=== PATIENT | female | born 1945 | race Asian ===

== ENCOUNTER 2017-02-16 09:16 | Outpatient (CLI) | payer OTHER | END 2017-02-16 21:01 | disposition home or self-care (01) | LOC: RAD 09:16 | DX: Z12.39 Encounter for other screening for malignant neoplasm of breast (principal); Z13.820 Encounter for screening for osteoporosis; Z12.31 Encounter for screening mammogram for malignant neoplasm of breast; Z78.0 Asymptomatic menopausal state | CPT/HCPCS: G0202-TC ==

== ENCOUNTER 2017-09-21 08:25 | Outpatient (CLI) | payer OTHER | END 2017-09-21 09:30 | disposition home or self-care (01) | LOC: RAD 08:25 | DX: J34.89 Other specified disorders of nose and nasal sinuses (principal) ==

== ENCOUNTER 2017-10-16 08:11 | Outpatient (CLI) | payer OTHER | END 2017-10-16 19:03 | disposition home or self-care (01) | LOC: CT 08:11 | DX: R93.8 Abnormal findings on diagnostic imaging of other specified body structures (principal) ==

== ENCOUNTER → 2017-11-28 11:51 | Outpatient (CLI) | payer OTHER | END | disposition home or self-care (01) | LOC: AMB 11:51 | DX: Z04.1 Encounter for examination and observation following transport accident (principal) ==

== ENCOUNTER 2017-11-28 12:24 | Emergency (ER) | payer OTHER ==
[~2017-11-28] VITALS: Ht 160 cm; Wt 102.5 kg
[2017-11-28 12:30] VITALS: TEMP 98.1
[2017-11-28 14:24] VITALS: BP 132/82
== END 2017-11-28 14:25 | disposition home or self-care (01) ==
LOC: ED 12:24
DX: M25.522 Pain in left elbow (principal); M25.562 Pain in left knee; S50.02XA Contusion of left elbow, initial encounter; S80.02XA Contusion of left knee, initial encounter; V43.52XA Car driver injured in collision with other type car in traffic accident, initial encounter; Y92.89 Other specified places as the place of occurrence of the external cause
CPT/HCPCS: 99283

== ENCOUNTER 2018-04-26 12:34 | Outpatient (CLI) | payer OTHER ==
[2018-04-26 13:02] LABS: PLATELET COUNT 280 K/uL (152-353)
== END 2018-04-26 20:09 | disposition home or self-care (01) ==
LOC: LABW 12:34
PROVIDERS: Psychiatry & Neurology Neurology
DX: G60.8 Other hereditary and idiopathic neuropathies (principal); R73.09 Other abnormal glucose; R94.6 Abnormal results of thyroid function studies; R79.89 Other specified abnormal findings of blood chemistry
CPT/HCPCS: 36415; 82607; 82728; 82746; 82784; 82785; 83036; 83540; 83550; 84165; 84439; 84443; 85027; 85044; 85651; 86039; 86140; 86430

== ENCOUNTER 2018-05-08 10:25 | Outpatient (CLI) | payer OTHER | END 2018-05-08 22:49 | disposition home or self-care (01) | LOC: MAMMO 10:25 | DX: Z12.31 Encounter for screening mammogram for malignant neoplasm of breast (principal); R20.2 Paresthesia of skin ==

== ENCOUNTER 2019-05-29 07:23 | Outpatient (CLI) | payer OTHER ==
[2019-05-29 07:58] LABS: PLATELET COUNT 260 K/uL (152-353)
[2019-05-29 08:16] LABS: POTASSIUM 3.5 mmol/L (3.6-5.2)
== END 2019-05-29 19:15 | disposition home or self-care (01) ==
LOC: LABW 07:23
PROVIDERS: Nurse Practitioner Family
DX: M25.551 Pain in right hip (principal); M54.5 Low back pain; M54.6 Pain in thoracic spine; R30.0 Dysuria
CPT/HCPCS: 36415; 80053; 81000; 85027; 85651; 86038; 86140

== ENCOUNTER 2019-06-11 11:36 | Outpatient (CLI) | payer OTHER | END 2019-06-11 23:27 | disposition home or self-care (01) | LOC: MAMMO 11:36 | DX: Z12.31 Encounter for screening mammogram for malignant neoplasm of breast (principal) ==

== ENCOUNTER 2019-09-18 14:58 | Outpatient (CLI) | payer OTHER | END 2019-09-18 23:33 | disposition home or self-care (01) | LOC: RAD 14:58 | DX: M25.561 Pain in right knee (principal); M25.562 Pain in left knee; N95.8 Other specified menopausal and perimenopausal disorders ==

== ENCOUNTER 2020-01-24 10:59 | Outpatient (CLI) | payer OTHER | END 2020-01-24 19:11 | disposition home or self-care (01) | LOC: RAD 10:59 | DX: M47.894 Other spondylosis, thoracic region (principal); M47.896 Other spondylosis, lumbar region ==

== ENCOUNTER 2020-09-30 22:01 | Emergency (ER) | payer OTHER ==
[~2020-09-30] VITALS: Ht 157.5 cm; Wt 90.7 kg
[2020-09-30 22:41] VITALS: BP 143/71; TEMP 97.7
== END 2020-09-30 22:41 | disposition home or self-care (01) ==
LOC: ED 22:01
DX: J06.9 Acute upper respiratory infection, unspecified (principal); J32.8 Other chronic sinusitis; H92.03 Otalgia, bilateral
CPT/HCPCS: 96372; 99283; J0696; J1100

== ENCOUNTER 2020-10-22 17:11 | Emergency (ER) | payer OTHER ==
[~2020-10-22] VITALS: Ht 157.5 cm; Wt 90.7 kg
[2020-10-22 17:51] VITALS: BP 164/74; TEMP 99
== END 2020-10-22 17:56 | disposition home or self-care (01) ==
LOC: ED 17:11
DX: K21.9 Gastro-esophageal reflux disease without esophagitis (principal); K59.09 Other constipation
CPT/HCPCS: 99282

== ENCOUNTER 2021-01-08 10:58 | Outpatient (CLI) | payer OTHER | END 2021-01-08 21:51 | disposition home or self-care (01) | LOC: CT 10:58 | PROVIDERS: ATTEND Internal Medicine Gastroenterology | DX: R10.31 Right lower quadrant pain (principal); R10.32 Left lower quadrant pain | CPT/HCPCS: 36415; 82565; 84520; Q9963 ==

== ENCOUNTER 2021-03-03 10:15 | Outpatient (CLI) | payer OTHER | END 2021-03-03 20:10 | disposition home or self-care (01) | LOC: INF 10:15 | PROVIDERS: ATTEND Internal Medicine | DX: Z23 Encounter for immunization (principal) | CPT/HCPCS: 96372 ==

== ENCOUNTER 2021-03-25 10:11 | Outpatient (CLI) | payer OTHER | END 2021-03-25 19:25 | disposition home or self-care (01) | LOC: INF 10:11 | PROVIDERS: ATTEND Internal Medicine | DX: Z23 Encounter for immunization (principal) | CPT/HCPCS: 96372 ==

== ENCOUNTER 2021-03-31 10:12 | Outpatient (CLI) | payer OTHER | END 2021-03-31 19:20 | disposition home or self-care (01) | LOC: RAD 10:12 | PROVIDERS: ATTEND Nurse Practitioner Family | DX: M46.1 Sacroiliitis, not elsewhere classified (principal); M47.896 Other spondylosis, lumbar region; M54.5 Low back pain; M85.88 Other specified disorders of bone density and structure, other site ==

== ENCOUNTER 2021-05-26 23:05 | Emergency (ER) | payer OTHER ==
[2021-06-02 15:45] LABS: PLATELET COUNT 262 K/uL (152-353)
[2021-06-02 15:46] LABS: POTASSIUM 3.8 mmol/L (3.6-5.2)
== END 2021-05-27 04:21 | disposition home or self-care (01) ==
LOC: ED 23:05
PROVIDERS: Family Medicine
DX: E11.65 Type 2 diabetes mellitus with hyperglycemia (principal)
CPT/HCPCS: 80053; 82948; 85027; 96372; 99283; J1815

== ENCOUNTER 2021-07-08 10:19 | Outpatient (CLI) | payer OTHER | END 2021-07-08 22:36 | disposition home or self-care (01) | LOC: MRI 10:19 → MAMMO 10:19 | PROVIDERS: ATTEND Specialist | DX: Z12.31 Encounter for screening mammogram for malignant neoplasm of breast (principal) ==

== ENCOUNTER 2021-07-12 15:09 | Outpatient (CLI) | payer OTHER | END 2021-07-12 19:17 | disposition home or self-care (01) | LOC: MRI 15:09 | PROVIDERS: ATTEND Psychiatry & Neurology Neurology | DX: R51.9 Headache, unspecified (principal) | CPT/HCPCS: 36415; 82565; 84520; A9576 ==

== ENCOUNTER 2021-07-27 12:53 | Outpatient (CLI) | payer OTHER | END 2021-07-27 20:53 | disposition home or self-care (01) | LOC: MAMMO 12:53 | PROVIDERS: ATTEND Specialist | DX: R92.8 Other abnormal and inconclusive findings on diagnostic imaging of breast (principal) ==

== ENCOUNTER 2021-09-24 13:55 | Outpatient (CLI) | payer OTHER ==
[2021-09-24 14:16] LABS: PLATELET COUNT 289 K/uL (152-353)
[2021-09-24 14:24] LABS: POTASSIUM 3.5 mmol/L (3.6-5.2)
== END 2021-09-24 21:04 | disposition home or self-care (01) ==
LOC: LABW 13:55
PROVIDERS: ATTEND Internal Medicine Gastroenterology
DX: K76.0 Fatty (change of) liver, not elsewhere classified (principal); K64.0 First degree hemorrhoids
CPT/HCPCS: 36415; 80053; 82272; 85027; 85610

== ENCOUNTER 2022-01-18 10:37 | Outpatient (CLI) | payer OTHER | END 2022-01-18 18:55 | disposition home or self-care (01) | LOC: RAD 10:37 | PROVIDERS: ATTEND Nurse Practitioner Family | DX: M46.1 Sacroiliitis, not elsewhere classified (principal); M47.894 Other spondylosis, thoracic region; M54.59 Other low back pain; M85.89 Other specified disorders of bone density and structure, multiple sites ==

== ENCOUNTER 2022-03-09 11:56 | Emergency (ER) | payer OTHER ==
[~2022-03-09] VITALS: Ht 157.5 cm; Wt 105.2 kg
[2022-03-09 12:12] VITALS: TEMP 97.4
[2022-03-09 12:49] LABS: PLATELET COUNT 255 K/uL (152-353)
[2022-03-09 13:07] LABS: POTASSIUM 3.7 mmol/L (3.6-5.2)
[2022-03-09] MEDS ORDERED: PANTOPRAZOLE 40MG TA PO (14:47)
[2022-03-09] MEDS ORDERED: ONDA4TAB3 PO (14:47)
[2022-03-09 15:05] VITALS: BP 152/63
== END 2022-03-09 15:06 | disposition home or self-care (01) ==
LOC: ED 11:56
PROVIDERS: Hospitalist
DX: K21.9 Gastro-esophageal reflux disease without esophagitis (principal); K29.60 Other gastritis without bleeding
CPT/HCPCS: 80053; 81000; 83690; 85027; 93005; 99283

== ENCOUNTER 2022-06-18 12:29 | Emergency (ER) | payer OTHER ==
[~2022-06-18] VITALS: Ht 157.5 cm; Wt 106.1 kg
[~2022-06-18 12:29] MED LIST: ONDA4TAB3 PO; PANTOPRAZOLE 40MG TA PO
[2022-06-18 13:03] VITALS: BP 174/76; TEMP 98.9
== END 2022-06-18 13:03 | disposition home or self-care (01) ==
LOC: ED 12:29
DX: R22.0 Localized swelling, mass and lump, head (principal); K59.09 Other constipation
CPT/HCPCS: 93005; 99282

== ENCOUNTER 2022-09-05 11:47 | Outpatient (CLI) | payer OTHER | END 2022-09-05 19:04 | disposition home or self-care (01) | LOC: RAD 11:47 | PROVIDERS: ATTEND Nurse Practitioner Family | DX: H16.223 Keratoconjunctivitis sicca, not specified as Sjogren's, bilateral (principal); M06.4 Inflammatory polyarthropathy; M47.894 Other spondylosis, thoracic region; M47.896 Other spondylosis, lumbar region; Z79.899 Other long term (current) drug therapy ==

== ENCOUNTER 2022-12-28 09:18 | Outpatient (CLI) | payer OTHER | END 2022-12-28 19:07 | disposition home or self-care (01) | LOC: MAMMO 09:18 | PROVIDERS: ATTEND Internal Medicine | DX: Z12.31 Encounter for screening mammogram for malignant neoplasm of breast (principal) ==

== ENCOUNTER 2023-02-22 13:02 | Outpatient (CLI) | payer OTHER | END 2023-02-22 19:27 | disposition home or self-care (01) | LOC: RESP 13:02 | PROVIDERS: ATTEND Nurse Practitioner Family | DX: M06.4 Inflammatory polyarthropathy (principal); M35.05 Sjogren syndrome with inflammatory arthritis; R76.0 Raised antibody titer; Z79.899 Other long term (current) drug therapy ==

== ENCOUNTER 2023-05-04 10:05 | Outpatient (CLI) | payer OTHER | END 2023-05-04 19:20 | disposition home or self-care (01) | LOC: RAD 10:05 | PROVIDERS: ATTEND Internal Medicine | DX: M25.561 Pain in right knee (principal); M79.604 Pain in right leg ==

== ENCOUNTER 2023-05-18 09:15 | Outpatient (CLI) | payer OTHER | END 2023-05-18 18:59 | disposition home or self-care (01) | LOC: US 09:15 | PROVIDERS: ATTEND Internal Medicine | DX: R22.41 Localized swelling, mass and lump, right lower limb (principal); M79.641 Pain in right hand ==

== ENCOUNTER 2023-09-01 09:30 | Outpatient (CLI) | payer OTHER | END 2023-09-01 18:59 | disposition home or self-care (01) | LOC: RAD 09:30 | PROVIDERS: ATTEND Internal Medicine | DX: M25.551 Pain in right hip (principal); M54.40 Lumbago with sciatica, unspecified side ==